=== PATIENT | male | born 1970 | race Caucasian/White ===

== ENCOUNTER 2022-11-12 15:32 | Outpatient (CLI) | payer BC, SELFPAY | END 2022-11-12 15:33 | disposition home or self-care (01) | PROVIDERS: PCP Family Medicine; Visit Provider Family Medicine | DX: E11.9 Type 2 diabetes mellitus without complications (principal); R79.89 Other specified abnormal findings of blood chemistry; E29.1 Testicular hypofunction | CPT/HCPCS: 80048; 80061; 84403 ==

== ENCOUNTER 2023-05-20 15:37 | Outpatient (CLI) | payer BC, SELFPAY | END 2023-05-20 15:38 | disposition home or self-care (01) | LOC: NFLDREF 05-25 06:26 | PROVIDERS: PCP Family Medicine; Referring Provider Family Medicine; Visit Provider Family Medicine | DX: R79.89 Other specified abnormal findings of blood chemistry (principal); Z12.5 Encounter for screening for malignant neoplasm of prostate | CPT/HCPCS: 84153 ==

== ENCOUNTER 2023-12-30 14:46 | Outpatient (CLI) | payer BC, SELFPAY ==
--- OUTSIDE RECORDS SUMMARY | 2023-12-30 14:48 | XMS_ITS | Clinical Summary ---
Author Organization [facility] Address [address], [place] [address] Care Team Providers Care Nurse Sane Name Role Phone Sherie Potter MD Primary Care Provider Source Comments You are receiving this document as you are listed as the primary care provider,follow-up provider, or the patient has been referred to you for consultation.This is in compliance with the Medicare and[facility] Hospital[facility] EHR Incentive Program,which states Providers who transition their patient to another setting of careor provider of care or refers their patient to another provider of care shouldprovide summary care record for each transition of care or referral. [email or web address] Allergies No known active allergies Medications Medication Sig Dispensed Refills Start Date End Date Status lidocaine (AKA XYLOCAINE) 2 % jelly Apply 1 Application topically 3 times daily as needed. 30 5 05/08/2007 Active Additional Information Patient not taking.Reported on 11/16/2022 ibuprofen (AKA MOTRIN) 600 MG tablet Take 1 tablet by mouth 3 times daily. LW Addl Instr:Take with food. 75 02/07/2008 Active Additional Information Patient not taking.Reported on 11/16/2022 ALPRAZolam (XANAX) 0.5 MG tablet Take 0.5 mg by mouth at bedtime as needed. Active escitalopram oxalate (LEXAPRO) 20 MG tablet Take 1 Tablet (20 mg) by mouth daily. 10/21/2015 Active Meloxicam (MOBIC) 15 MG tablet Take 1 Tablet (15 mg) by mouth daily as needed. 04/21/2018 Active testosterone (ANDROGEL) 25 MG/2.5GM (1%) GEL gel Apply 0.25 mg of testosterone to skin daily. 10/08/2017 Active drug not in computerIndications :KETAMINE HCL (KETAMINE 8%-GABAPENTIN 6%-LIDOCAINE 2.5%) Gel as needed. Indications: KETAMINE HCL (KETAMINE 8%-GABAPENTIN 6%-LIDOCAINE 2.5%) Gel Active Active Problems Problem Noted Date Diagnosed Date Obstructive sleep apnea on CPAP 12/08/2016 Overview: Setting: Auto ASV EPAP 8-15 PS 4-16 Supplied by: [facility] PSG done: 06/11/08 (01/15/17 titration) AHI 20 RDI 28 Lowest O2 Sat:77% Neal/ Peller 05/08/19 replacement New/nasal 01-25-17; 03/09/17 change to ASV; 04/12/17 renew; 05/17/19 chnage Reflex sympathetic dystrophy of upper extremity 04/25/2007 Overview: LW Modifier: see 04/18 neuro consult sDoc ; Reflex Sympathetic Dystrophy Upper Limb Lumbago 01/05/2003 Overview: Pain Low Back Immunizations Name Administration Dates Next Due Measles 01/20/1990 Td 03/12/2003,09/29/1995,04/01/1985 Social History Tobacco Use Types Packs/Day Years Used Date Smoking Tobacco: Never Smokeless Tobacco: Current Chew Sex and Gender Information Value Date Recorded Sex Assigned at Not on file Gender Identity Not on file Sexual Orientation Not on file Last Filed Vital Signs Vital Sign Reading Time Taken Comments Blood Pressure 115/76 05/08/2019 11:22 AM CDT Pulse 76 05/08/2019 11:22 AM CDT Temperature 36.7 ??C (98.1 ??F) 02/19/2013 4:45 PM CD T Respiratory Rate 18 09/22/2006 3:12 PM EXPERIMENTAL BOX TESTER Oxygen Saturation 96% 05/08/2019 11:22 AM CDT Inhaled Oxygen Concentration - - Weight 95.7 kg (211 lb) 05/08/2019 11:22 AM CDT Height 170.2 cm (5' 7) 05/08/2019 11:22 AM CDT Body Mass Index 33.05 05/08/2019 11:22 AM CDT Plan of Treatment Health Maintenance Due Date Last Done Comments Colon Cancer Screening Plan Due 1970 Hep C Screening (Preventive Services) 1970 PSA Screening Discussion 1970 HIV Screening (Preventive Services) 1986 Adult Preventive Visit 02/15/1988 HepB (1) 1989 Cholesterol 09/22/2011 09/22/2006 DTaP/Tdap/Td (2 - Tdap) 05/02/2013 05/01/20 13, 03/12/2003, 09/29/1995, Additional history exists Zoster/Shingles (1 of 2) 02/15/2020 COVID-19 Vaccine ( season) 2023 12/05/2020, 10/18/2020 Influenza (Season Ended) 2024 020, 05/23/2018, 05/28/2013 HepA Aged Out No longer eligi ble based on patient's age to complete this topic Hib Aged Out No longer eligi ble based on patient's age to complete this topic IPV (Polio) Aged Out No longer eligi ble based on patient's age to complete this topic MCV4 Aged Out No longer eligi ble based on patient's age to complete this topic Pneumococcal Aged Out No longer eligi ble based on patient's age to complete this topic Procedures Procedure Name Priority Date/Time Associated Diagnosis Comments LIPID PANEL & DIRECT LDL (IF NEEDED) Routine 09/22/2006 10:29 AM EXPERIMENTAL BOX TESTER from Last 3 Months or Most Recently Relevant to Health Maintenance Results * Lipid Panel and Direct LDL(If Needed) (09/22/2006 10:29 AM EXPERIMENTAL BOX TESTER) Hours Fasting 12.0 Hours HP CONVERSION Cholesterol/HDL Ratio Screen 3.2 No normal range HP CONVERSION Cholesterol 191 <200 mg/dL HP CONVERSION HDL Cholesterol 60 40 - 60 mg/dL HP CONVERSION Triglycerides 119 0 - 149 mg/dL HP CONVERSION LDL Calculated 107 0 - 130 mg/dL HP CONVERSION Comment: 09/22/2006 10:2 9 AM EXPERIMENTAL BOX TESTER Ahsan Amezcua MD LAB_1 HP CONVERSION from Last 3 Months or Most Recently Relevant to Health Maintenance Care Teams Nurse Sane Relationship Specialty Start Date End Date Sherie Potter MD [address] [place] [address] PCP - General Family Practice 12/09/16
--- OUTSIDE RECORDS SUMMARY | 2023-12-30 14:48 | XMS_ITS | Referral Summary ---
Author Organization [facility] Address [address] [place] [address] Care Team Providers Care Hot Air Furnace Installer And Repairer Name Role Phone Elsewhere, Pcp Primary Care Provider Unavailabl e Source Comments Patient records contain information from all sites at [facility]. For routine questions regarding patient records, call [phone] during business hours, M-F 8:00 AM - 5:00 PM Central Time. Record requests for emergency care only can be directed to [phone] at any time.[facility] Allergies Active Allergy Reactions Criticality Noted Date Comments Hydrocodone-Acetaminophen Other (see comments) 12/02/2009 nightmare Morphine Itching 06/04/2014 Medications Medication Sig Dispensed Refills Start Date End Date Status blood sugar diagnostic (Accu-Chek Guide test strips) strips 4 times daily. 12/05/2020 Active escitalopram (LEXAPRO) 20 mg tablet Take 20 mg by mouth daily. 06/22/2022 Active ibuprofen (ADVIL,MOTRIN) 600 mg tablet Take by mouth. 02/07/2008 Active insulin glargine-yfgn (SEMGLEE) 100 unit/mL (3 mL) injection INJECT 13 UNITS SUBCUTANEOUSLY AT BEDTIME 07/01/2022 Active metFORMIN XR (GLUCOPHAGE-XR) 500 mg 24 hr tablet Take 1,000 mg by mouth 2 (two) times a day. 07/12/2022 Active naloxone (NARCAN) 4 mg/actuation nasal spray 1 spray (4 mg) intranasally into 1 nostril. Administer into alternating nostrils. May repeat every 2 to 3 minutes. 11/03/2021 Active oxyCODONE (OxyCONTIN) 20 mg 12 hr tablet 1 P.O. A.M.; 1 P.O. H.S. max: 2 a day. Use date: 08/05/22-09/03/22 08/03/2022 Active OxyCONTIN 15 mg 12 hr tablet TAKE 1 TABLET BY MOUTH EVERY AFTERNOON. USE DATES 07/05/22 THRU 08/04/22. 07/02/2022 Active oxyCODONE (OxyCONTIN) 15 mg 12 hr tablet 1 P.O. q afternoon. (08/05/22-09/03/22) 08/03/2022 Active OxyCONTIN 20 mg 12 hr tablet 07/05/2022 Active oxyCODONE (ROXICODONE) 15 mg immediate release tablet 07/02/2022 Active oxyCODONE (ROXICODONE) 15 mg immediate release tablet 1 tab every 4 hours as needed, no more than 6/day USE DATES: 08/06/22-09/04/22 OK to fill 3 days before due date 08/03/2022 Active BD Marcia 2nd Gen Pen Needle 32 gauge x 32 needle USE DIRECTED FOR INSULIN 06/04/2022 Active testosterone cypionate (DEPO-TESTOSTERONE ) 200 mg/mL injection INJECT 1 ML IN THE MUSCLE ONE TIME A WEEK 03/22/2021 Activ e Immunizations Name Administration Dates Next Due Measles 01/20/1990 PPSV23 08/27/2021 RZV (SHINGRIX) 08/19/2021,06/19/2021 Td (Adult), adsorbed 03/12/2003,09/29/1995,04/01 Td Preservative Free (TENIVAC, DECAVAC) 05/01/20 13 influenza vaccine QV(FLUBLOK ) (18 years or older) (PF) 06/19/2021 influenza vaccine quad (FLUZ ONE/FLUARIX) (6 months and older)(PF) 05/08/2020,05/23/2018,05/28/2013 Social History Tobacco Use Types Packs/Day Years Used Date Smoking Tobacco: Never Smokeless Tobacco: Never Tobacco Cessation:Counseling Given: Not Answered Alcohol Use Standard Drinks/Week Comments Never 0 (1 standard drink = 0.6 oz pur e alcohol) PHQ-2 Answer Date Recorded PHQ-2 Score 0 07/28/2022 Nutrition Answer Date Recorded Nutrition: EVOO Fat Source Unknown 04/09 Nutrition: Servings of Fruits/Vegetables per Day Not on file 04/09/2022 Dental Answer Date Recorded Dental: Regular Dentist Unknown 04/09/20 Sex and Gender Information Value Date Recorded Sex Assigned at Not on file Gender Identity Not on file Sexual Orientation Not on file Last Filed Vital Signs Vital Sign Reading Time Taken Comments Blood Pressure 138/83 07/28/2022 4:24 PM SENIOR PROJECT CONTROLS SPECIALIST Pulse 82 07/28/2022 4:24 PM SENIOR PROJECT CONTROLS SPECIALIST Temperature 37 ??C (98.6 ??F) 07/28/2022 4:24 PM SENIOR PROJECT CONTROLS SPECIALIST Respiratory Rate 12 07/28/2022 4:24 PM SENIOR PROJECT CONTROLS SPECIALIST Oxygen Saturation 98% 07/28/2022 4:24 PM SENIOR PROJECT CONTROLS SPECIALIST Inhaled Oxygen Concentration - - Weight 80 kg (176 lb 5.9 oz) 07/28/2022 4:24 PM SENIOR PROJECT CONTROLS SPECIALIST Height 167.6 cm (5' 6) 07/28/2022 4:24 PM SENIOR PROJECT CONTROLS SPECIALIST Body Mass Index 28.47 07/28/2022 4:24 PM SENIOR PROJECT CONTROLS SPECIALIST Plan of Treatment Not on file Care Teams Hot Air Furnace Installer And Repairer Relationship Specialty Start Date End Date Elsewhere, Pcp PCP - General Internal Medicine 07/28/22
--- OUTSIDE RECORDS SUMMARY | 2023-12-30 14:48 | XMS_ITS ---
Author Organization [facility] Address [address] [place] [address] Care Team Providers Care Skein Drier Name Role Phone Unavailable Unavailable Unavailable Surgery Details Not on file Complications Check Surgery Details section. Procedure Estimated Blood Loss Check Surgery Details section. Procedure Findings Check Surgery Details section. Procedure Specimens Taken Check Surgery Details section.
--- OUTSIDE RECORDS SUMMARY | 2023-12-30 14:48 | XMS_ITS | Clinical Summary ---
Author Organization [facility] Address [address] [place] [address] Care Team Providers Care Manager Books Name Role Phone Elsewhere, Pcp Primary Care Provider Unavailabl e Source Comments Patient records contain information from all sites at [facility]. For routine questions regarding patient records, call [phone] during business hours, M-F 8:00 AM - 5:00 PM Central Time. Record requests for emergency care only can be directed to [phone] at any time.[facility] Allergies Active Allergy Reactions Criticality Noted Date [...] Comments Blood Pressure 138/83 07/28/2022 4:24 PM CHILDCARE ATTENDANT Pulse 82 07/28/2022 4:24 PM CHILDCARE ATTENDANT Temperature 37 ??C (98.6 ??F) 07/28/2022 4:24 PM CHILDCARE ATTENDANT Respiratory Rate 12 07/28/2022 4:24 PM CHILDCARE ATTENDANT Oxygen Saturation 98% 07/28/2022 4:24 PM CHILDCARE ATTENDANT Inhaled Oxygen Concentration - - Weight 80 kg (176 lb 5.9 oz) 07/28/2022 4:24 PM CHILDCARE ATTENDANT Height 167.6 cm (5' 6) 07/28/2022 4:24 PM CHILDCARE ATTENDANT Body Mass Index 28.47 07/28/2022 4:24 PM CHILDCARE ATTENDANT Plan of Treatment Health Maintenance Due Date Last Done Comments CT Colonography 1970 Cologuard 1970 Colonoscopy 1970 Colorectal Cancer Screening 1970 FIT 1970 Fasting Glucose for Diabetes Screening 1970 Generalized Anxiety (DEVI-7) 1970 HIV Screening 1970 Hepatitis C Screening 1970 Lipid (Cholesterol) Screening 1970 Hepatitis B Vaccines (1 of 3 - 19+ 3-dose series) 1989 Controlled Substance Agreement 07/28/2022 Controlled Substance Monitoring (PHQ-9) 07/28/2022 Controlled Substance Monitoring 07/28/2022 Opioid Risk Tool (ORT) 07/28/2022 PEG assessment for Opioid therapy 07/28/2022 Opioid Use Disorder (OUD) Screening 07/28/2023 Depression Screening (Annual PHQ-2) 08/01/2023 DTaP,Tdap,and Td Vaccines (3 - Td or Tdap) 05/20/2033 05/20/2023, 05/01/2013, 03/12/2003, Additional history exists Zoster Vaccines Completed 08/19/2021, 06/19/2021 Pneumococcal vaccine (0-64 years) Aged Out 08/27/2021 No longer eligible based on patient's age to complete this topic COVID-19 Vaccine Completed 05/20/2023, , 12/05/2020, Additional history exists Influenza Vaccine Completed 05/20/2023, , 05/08/2020, Additional history exists Care Teams Manager Books Relationship Specialty Start Date End Date Elsewhere, Pcp PCP - General Internal Medicine 07/28/22
--- OUTSIDE RECORDS SUMMARY | 2023-12-30 14:48 | XMS_ITS | Clinical Summary ---
Author Organization [facility] Address [place], [place] [address] Care Team Providers Care Complaint Evaluation Supervisor Name Role Phone Clinic, No Pcp Or Primary Care Provider Unavaila ble Allergies Active Allergy Reactions Criticality Noted Date Comments Hydrocodone-Acetaminophen 12/02/2009 nightmare Morphine Itching 06/04/2014 Medications Medication Sig Dispensed Refills Start Date End Date Status escitalopram oxalate (LEXAPRO) 20 mg tablet 2 10/21/2015 Active ibuprofen (ADVIL; MOTRIN) 600 mg tablet Take by mouth. 02/07/2008 Active metFORMIN (GLUCOPHAGE) 500 mg tablet Take 2 tablets by mouth 2 times daily with meals. 09/08/2020 Active Accu-Chek Guide test strips strip 4 times daily. 12/05/2020 Active Lantus Solostar U-100 Insulin 100 unit/mL (3 mL) pen INJECT 10 UNITS SUBCUTANEOUSLY AT BEDTIME 03/06/2021 Active Accu-Chek Softclix Lancets USE DIRECTED FOUR TIMES DAILY 03/06/2021 Active BD Marcia 2nd Gen Pen Needle 32 gauge x 32 USE WITH LANTUS ONCE DAILY. 06/09/2021 Active B-D 3cc Luer-Jose Ramon Syr 25Gx1 3 mL 25 gauge x 1 syrg USE DIRECTED WITH TESTOSTERONE 06/16/2021 Active testosterone cypionate (DEPO-TESTOSTER ONE) 200 mg/mL injection INJECT 1 ML IN THE MUSCLE ONE TIME A WEEK 03/22/2021 Active naloxone (Narcan) 4 mg/actuation nasal sprayIndication s:Uncomplicated opioid dependence (HC) 1 spray (4 mg) intranasally into 1 nostril. Administer into alternating nostrils. May repeat every 2 to 3 minutes. 1 Each 1 11/03/2021 Active oxyCODONE myristate (Xtampza ER) 18 mg CSpAIndications :Chronic pain syndrome,Phanto m limb syndrome with pain (HC) Take 1 Capsule (18 mg) by mouth once daily. 09/18/23-10/17/2023 incl. 30 Capsule 09/15/2023 Active oxyCODONE (OxyCONTIN) 15 mg SUSTAINED release tabletIndicatio ns:Chronic pain syndrome,Phanto m limb syndrome with pain (HC) Take 1 Tablet (15 mg) by mouth once daily. Use dates: 12/26/2023-01/24/20 24 30 Tablet 12/23/2023 Active oxyCODONE (ROXICODONE) 15 mg immediate release tabletIndicatio ns:Phantom limb syndrome with pain (HC),Causalgia of left upper extremity,Contr olled substance agreement signed,Causalgi a of upper limb, left Take 1 Tablet (15 mg) by mouth every 4 hours if needed for Pain (max: 6 a day.). USE DATES: 12/28/2023-01/26/20 24 180 Tablet 12/25/2023 Active oxyCODONE (OxyCONTIN) 15 mg SUSTAINED release tabletIndicatio ns:Chronic pain syndrome,Phanto m limb syndrome with pain (HC) Take 1 Tablet (15 mg) by mouth once daily. Use dates: 11/26/2023-12/25/19 24 30 Tablet 11/23/2023 4 Discontinue d(Reorder (E-cancel not sent)) oxyCODONE (ROXICODONE) 15 mg immediate release tabletIndicatio ns:Phantom limb syndrome with pain (HC),Causalgia of left upper extremity,Contr olled substance agreement signed,Causalgi a of upper limb, left Take 1 Tablet (15 mg) by mouth every 4 hours if needed for Pain (max: 6 a day.). USE DATES: 11/28/2023-12/27/19 24 180 Tablet 11/25/2023 4 Discontinue d(Reorder (E-cancel not sent)) Active Problems Problem Noted Date Diagnosed Date Complex regional pain syndro me type 1 of left upper extremity 05/02/2023 Chronic pain syndrome 05/02/2023 Controlled substance agreement signed-10/01/2022 10/04/2022 Uncomplicated opioid dependence 10/01/2022 Controlled substance agreement signed 08/26/2021 08/28/2021 Controlled substance agreement signed 04/08/2021 Overview: Dr. Fritz [facility] Brigitte Bonilla .................... 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 Resolved Problems Problem Noted Date Diagnosed Date Resolved Date Controlled substance agreement signed 09/20/2013 01/23/2018 Overview: [facility] (Lam- 2008) Causalgia of upper limb 07/12/201101/29 RSD upper limb 04/14/2009 01/09/2016 Encounters Date Type Department Care Team Description 12/20/2023 Refill [facility] [address] [place] [address] Noa Luu, HOOP MAKER HELPER MACHINE Refill Request 11/22/2023 Refill [facility] [address] [place] [address] Noa Luu, HOOP MAKER HELPER MACHINE Refill Request 10/31/2023 7:30 AM CDT Office Visit [facility] [address] [place] [address] Noa Luu, HOOP MAKER HELPER MACHINE Follow Up; phantom pain ((L) hand. Same; He has accepted it. ) 10/31/2023 Travel 10/24/2023 Refill [facility] [address] [place] [address] Noa Luu HOOP MAKER HELPER MACHINE Refill Request (Oxycontin 15mg & Oxycodone 15mg) from Last 3 Months Social History Tobacco Use Types Packs/Day Years Used Date Smoking Tobacco: Never Smokeless Tobacco: Current Chew Tobacco Cessation:Ready to Q uit: Not Asked; Counseling Given: Not Answered Comments:chewing tobacco ; 1/4 tin. (Wants to quit) - has a bet with his son. Alcohol Use Standard Drinks/Week Comments No 0 (1 standard drink = 0.6 oz pur e alcohol) Social Connections Answer Date Recorded Frequency of Communication with Friends and Fami ly Not on file 11/03/2021 Sex and Gender Information Value Date Recorded Sex Assigned at Not on file Gender Identity Not on file Sexual Orientation Not on file Obstetrics History Last Filed Vital Signs Vital Sign Reading Time Taken Comments Blood Pressure 130/70 06/13/2023 5:38 PM ASSOCIATE STORE MANAGER Pulse 99 08/25/2023 3:18 PM ASSOCIATE STORE MANAGER Temperature 36.9 ??C (98.4 ??F) 10/01/2022 7:38 AM CS T Respiratory Rate 14 11/08/2022 7:50 AM CDT Oxygen Saturation 92% 10/31/2023 7:39 AM CDT Inhaled Oxygen Concentration - - Weight 78 kg (172 lb) 05/25/2022 7:12 AM CDT Height - - Body Mass Index - - Plan of Treatment Upcoming Encounters Date Type Department Care Team (Late st Contact Info) Description 01/13/2024 11:30 AM CDT Office Visit [facility] [address] [facility] [address] [place] [address] Noa Luu HOOP MAKER HELPER MACHINE [address] [facility] [address] [place] [address] Health Maintenance Due Date Last Done Comments Tdap 1981 Depression screening for age 12+ 1982 HIV for age 15-65 1985 BMI (ht and wt on same day) for age 18+ 02/15/1988 Hepatitis C screening for age 18-79 02/15/1988 Tetanus booster 1990 Colonoscopy through age 75 2015 Lipids for age 45-75 2015 Zoster (shingles) series for age 50+ (1 of 2) 02/15/2020 Influenza for age 50-64 04/01/2024 COVID-19 vaccine series Completed 05/20/20, 07/21/2021, 12/05/2020, Additional history exists Pneumococcal series for age 6-64 Aged Out No longer eligible based on patient's age to complete this topic Care Teams Complaint Evaluation Supervisor Relationship Specialty Start Date End Date Clinic, No Pcp Or . PCP - General 10/28/21
== END 2023-12-30 14:47 | disposition home or self-care (01) ==
LOC: NFLDREF 14:47
PROVIDERS: PCP Family Medicine; Visit Provider Family Medicine
DX: E11.9 Type 2 diabetes mellitus without complications (principal); Z79.4 Long term (current) use of insulin; Z13.220 Encounter for screening for lipoid disorders
CPT/HCPCS: 80048; 80061

== ENCOUNTER 2025-01-11 00:18 | Outpatient (CLI) | payer BC, SELFPAY | END 2025-01-11 00:19 | disposition home or self-care (01) | PROVIDERS: PCP Family Medicine; Visit Provider Family Medicine | DX: E11.9 Type 2 diabetes mellitus without complications (principal); R79.89 Other specified abnormal findings of blood chemistry; F51.9 Sleep disorder not due to a substance or known physiological condition, unspecified; Z12.5 Encounter for screening for malignant neoplasm of prostate; Z79.4 Long term (current) use of insulin; Z13.6 Encounter for screening for cardiovascular disorders | CPT/HCPCS: 80048; 80061; G0103 ==

== ENCOUNTER 2025-03-11 09:03 | Outpatient (CLI) | payer OTHER, SELFPAY ==
[2025-03-11 13:35] LABS: Cannabinoid Screen Urine Negative (Negative); Methamphetamines Screen Urine Negative (Negative); Tricyclic Antidepressant Urine Negative (Negative)
== END 2025-03-11 09:04 | disposition home or self-care (01) ==
LOC: NPINS 09:04
PROVIDERS: PCP Family Medicine; Visit Provider Nurse Practitioner Psychiatric/Mental Health
DX: F41.1 Generalized anxiety disorder (principal); F11.90 Opioid use, unspecified, uncomplicated
CPT/HCPCS: 80306

== ENCOUNTER 2025-06-13 11:38 | Outpatient (CLI) | payer OTHER, SELFPAY | END 2025-06-13 11:39 | disposition home or self-care (01) | LOC: NPINS 11:39 | PROVIDERS: PCP Family Medicine; Visit Provider Nurse Practitioner Psychiatric/Mental Health | DX: F41.1 Generalized anxiety disorder (principal); F11.90 Opioid use, unspecified, uncomplicated | CPT/HCPCS: 80345; 80347; 80348; 80355; 80356; 80361; 80364; 80365; 80366; 80368; 80372 ==

== ENCOUNTER 2025-06-13 11:52 | Outpatient (CLI) | payer OTHER, SELFPAY | END 2025-06-13 11:53 | disposition home or self-care (01) | LOC: NFLDREF 11:52 | PROVIDERS: PCP Family Medicine; Visit Provider Family Medicine | DX: E11.29 Type 2 diabetes mellitus with other diabetic kidney complication (principal); Z79.4 Long term (current) use of insulin | CPT/HCPCS: 82043; 82570 ==